=== PATIENT | female | born 1980 | race Caucasian/White ===

== ENCOUNTER 2016-12-26 22:16 | Emergency (ER) | payer OTHER ==
[~2016-12-26] VITALS: Ht 165.1 cm; Wt 74.4 kg
[2016-12-26 22:39] VITALS: BP 144/92
--- NOTE | 2016-12-27 00:03 | NUR ---
CALLED; NOT IN LOBBY
[2016-12-27] MEDS ORDERED: MAG HYDROX/AL HYDROX/SIMETH 30 ML UDC ONE (00:17)
[2016-12-27] MEDS ORDERED: LIDOCAINE VISCOUS 2% UD 15 ML UDC ONE (00:17)
[2016-12-27] MEDS ORDERED: MAG HYDROX/AL HYDROX/SIMETH 30 ML UDC PO ONE (00:30)
[2016-12-27] MEDS ORDERED: LIDOCAINE VISCOUS 2% UD 15 ML UDC MM ONE (00:30)
== END 2016-12-27 00:31 | disposition home or self-care (01) ==
LOC: ER 22:19
DX: K21.9 Gastro-esophageal reflux disease without esophagitis (principal); Z88.0 Allergy status to penicillin; Z88.2 Allergy status to sulfonamides; Z88.1 Allergy status to other antibiotic agents; Z88.8 Allergy status to other drugs, medicaments and biological substances
CPT/HCPCS: A4606; Z7610

== ENCOUNTER 2020-10-29 23:16 | Emergency (ER) | payer OTHER ==
[~2020-10-29] VITALS: Ht 165.1 cm; Wt 72.6 kg
--- NOTE | 2020-10-29 23:16 | NUR ---
pt bibself c/o allergic rxn either to hair dye or blue cheese dressing. pt aaox4 breathing evenly and unlabored. Per pt, she was getting her hair done when she touched some blue cheese dressing, which is a known allergen for her. upon assessment, pt had redness and some facial swelling. Md at bedside. pt attached to monitor and pox.
[2020-10-30] MEDS ORDERED: DEXAMETHASONE SOD PHOSPHATE 10 MG/ML VIAL ONE (00:13)
[2020-10-30] MEDS ORDERED: DEXAMETHASONE SOD PHOSPHATE 4 MG/ML VIAL IM ONE (00:30)
--- NOTE | 2020-10-30 01:02 | NUR ---
Patient discharged to home in stable condition. Written and verbal after care instructions given. Patient verbalizes understanding of instruction. Pt ambulatory with a steady gait
[2020-10-30 01:07] VITALS: BP 120/78
== END 2020-10-30 01:02 | disposition home or self-care (01) ==
LOC: ER 23:16
DX: T78.3XXA Angioneurotic edema, initial encounter (principal); R00.2 Palpitations; Z88.0 Allergy status to penicillin; Z88.2 Allergy status to sulfonamides; Z88.1 Allergy status to other antibiotic agents; Z88.6 Allergy status to analgesic agent
CPT/HCPCS: 96372; 99283; J1100